=== PATIENT | female | born 1970 | race Caucasian/White ===

== ENCOUNTER 2016-12-07 09:39 | Outpatient (CLI) | payer MEDICAID | END 2016-12-07 09:40 | disposition home or self-care (01) | DX: E66.9 Obesity, unspecified (principal); I10 Essential (primary) hypertension ==

== ENCOUNTER 2017-02-20 09:35 | Outpatient (CLI) | payer MEDICAID | END 2017-02-20 09:36 | disposition home or self-care (01) | DX: Z12.31 Encounter for screening mammogram for malignant neoplasm of breast (principal) ==

== ENCOUNTER 2018-02-19 23:47 | Emergency (ER) | payer MEDICAID ==
[2018-02-20 00:29] LABS: BASOPHILS # (AUTO) 0.1 10^3/uL (0.0-0.1); BASOPHILS % (AUTO) 1.3 %; EOSINOPHILS # (AUTO) 0.3 10^3/uL (0.0-0.7); EOSINOPHILS % (AUTO) 2.9 %; HGB - HEMOGLOBIN 13.1 g/dL (12.0-16.0); LYMPHOCYTES # (AUTO) 2.8 10^3/uL (1.5-3.5); LYMPHOCYTES % (AUTO) 30.7 %; MEAN CORPUSCULAR HEMOGLOBIN 29.9 pg (27.0-31.0); MEAN CORPUSCULAR HGB CONC 33.6 g/dL (32.0-36.0); MEAN PLATELET VOLUME 8.4 fL (7.9-10.8); MONOCYTES # (AUTO) 0.6 10^3/uL (0.0-1.0); NEUTROPHILS # (AUTO) 5.2 10^3/uL (1.5-6.6); NEUTROPHILS % (AUTO) 58.1 %; PLT - PLATELET COUNT 272 10^3/uL (130-450); RED BLOOD COUNT 4.38 10^6/uL (4.20-5.40); RED CELL DISTRIBUTION WIDTH 13.2 % (12.0-15.0)
[2018-02-20 00:44] LABS: ALBUMIN 4.1 g/dL (3.2-5.5); ALBUMIN/GLOBULIN RATIO 1.2 (1.0-2.2); BILIRUBIN,TOTAL 0.3 mg/dL (0.2-1.0); CALCIUM 8.8 mg/dL (8.5-10.3); CREATININE 0.4 mg/dL (0.4-1.0); TOTAL PROTEIN 7.6 g/dL (6.7-8.2)
--- NOTE | 2018-02-20 01:04 | ED Physician Documentation ---
PD HPI SYNCOPE - Stated complaint Stated Complaint: LOW BLOOD PRESSURE - Chief complaint Chief Complaint: Cardiac - History obtained from History obtained from: Patient, Family - History of Present Illness Witnessed: Witnessed Timing - onset: Today Duration: Seconds Preceding symptoms: Diaphoresis, Light headed Contributing factors: Emotional upset Similar symptoms before: Has not had sx before Recently seen: Not recently seen - Additional information Additional information: Patient is a 47 year old female with no significant past medical history who is in the emergency department for hypotension and near syncope. patient was in the ED awaiting on her son. Patient became diaphoretic and dizzy. They checked to the patient's blood pressure and it was 70s systolic so patient checked in. After patient was placed in a bed and re-evaluated her hypotension had resolved and patient was asymptomatic. Review of Systems Constitutional: denies: Fever, Chills Ears: reports: Tinnitus/ringing Nose: reports: Reviewed and negative Throat: reports: Reviewed and negative Cardiac: denies: Chest pain / pressure, Palpitations Respiratory: denies: Dyspnea, Cough, Wheezing GI: denies: Abdominal Pain, Nausea, Vomiting : reports: Reviewed and negative Skin: reports: Reviewed and negative, Other (diaphoretic) Musculoskeletal: reports: Reviewed and negative Neurologic: reports: Near syncope. 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 HEENT: None Psych: None Musculoskeletal: None Derm: None - Past Surgical History Past Surgical History: Yes Ortho: Other HEENT: Tonsil/Adenoidectomy - Present Medications Home Medications: Ambulatory Orders Medication Instructions Recorded Confirmed Carvedilol [Coreg] 6.25 mg PO BID 09/01/13 08/24/15 Lisinopril [Prinivil] 20 mg PO DAILY 09/01/13 08/24/15 - Allergies Allergies/Adverse Reactions: Allergies Allergy/AdvReac Type Severity Reaction Status Date / Time No Known Drug Allergies Allergy Unverified 02/19/18 23:52 - Social History Does the pt smoke?: No Smoking Status: Never smoker Does the pt drink ETOH?: Yes Does the pt have substance abuse?: No - Immunizations Immunizations are current?: Yes PD ED PE NORMAL - Vitals Vital signs reviewed: Yes - General General: Alert and oriented X 3, No acute distress - HEENT HEENT: Atraumatic, PERRL - Neck Neck: Supple, no meningeal sign - Cardiac Cardiac: RRR - Respiratory Respiratory: No respiratory distress, Clear bilaterally - Abdomen Abdomen: Soft, Non tender, Non distended - Derm Derm: Normal color, Warm and dry, No rash - Extremities Extremities: No deformity, Normal ROM s pain, No calf tenderness / cord - Neuro Neuro: Alert and oriented X 3, torch cutter 2-12 intact, No motor deficit, Normal speech Eye Opening: Spontaneous Motor: Obeys Commands Verbal: Oriented GCS Score: 15 Results - Vitals Vitals: Vital Signs - 24 hr 02/19/18 02/20/18 02/20/18 23:50 00:34 01:17 Temperature 35.9 C L Heart Rate 80 80 78 Respiratory 18 13 14 Rate Blood Pressure 124/84 H 132/80 H 128/81 H O2 Saturation 96 100 100 Oxygen O2 Source Room air - EKG (time done) 2351 Rate: Rate (enter#) (79) Rhythm: NSR Brent: Normal Intervals: Normal [place] Ischemia: ST elevation c/w repol - Labs Labs: Laboratory Tests 02/20/18 02/20/18 02/20/18 00:22 00:22 00:22 WBC 9.0 RBC 4.38 Hgb 13.1 Hct 38.9 MCV 89.0 MCH 29.9 MCHC 33.6 RDW 13.2 Plt Count 272 MPV 8.4 Neut # 5.2 Lymph # 2.8 [place] # 0.6 Eos # 0.3 Baso # 0.1 Absolute Nucleated RBC 0.00 Nucleated RBC % 0.0 Sodium 133 L Potassium 3.3 L Chloride 102 Carbon Dioxide 19 L Anion Gap 12.0 BUN 11 Creatinine 0.4 Estimated GFR (MDRD) 170 Glucose 93 Calcium 8.8 Total Bilirubin 0.3 AST 26 ALT 30 Alkaline Phosphatase 53 Troponin I < 0.04 B-Natriuretic Peptide Total Protein 7.6 Albumin 4.1 Globulin 3.5 Albumin/Globulin Ratio 1.2 Lipase 16 L 02/20/18 00:22 WBC RBC Hgb Hct MCV MCH MCHC RDW Plt Count MPV Neut # Lymph # [place] # Eos # Baso # Absolute Nucleated RBC Nucleated RBC % Sodium Potassium Chloride Carbon Dioxide Anion Gap BUN Creatinine Estimated GFR (MDRD) Glucose Calcium Total Bilirubin AST ALT Alkaline Phosphatase Troponin I B-Natriuretic Peptide 17 Total Protein Albumin Globulin Albumin/Globulin Ratio Lipase PD MEDICAL DECISION MAKING - ED course Complexity details: reviewed old records, reviewed results, re-evaluated patient , considered differential, d/w patient, d/w family ED course: patient was seen and examined at bedside. Patient was well appearing and in no distress. ekg was performed and within normal limits. Patient's diagnostics were all within normal limits. Patient's symptoms were likely secondary to a vaso-vagal episode. Patient had a negative score for the woods angelito syncope rule. Patient required no further work up and was stable for discharge with outpatient follow up. Departure - Departure Disposition: 01 Home, Self Care Clinical Impression: Vaso vagal episode Condition: Good Instructions: ED Near Syncope Vasovagal Follow-Up: Maximo Pringle PA-C [Primary Care Provider] - As Needed Comments: Your diagnostics today were within normal limits. Your symptoms were likely secondary to vaso-vagal episode.s. it is important that you stay well hydrated and try to catch up your rest. You should follow up with your doctor if these episodes become more frequent. You may return to the emergency department at any time if needed for new, worsening or uncontrollable symptoms. Discharge Date/Time: 02/20/18 01:26
[2018-02-20 01:18] VITALS: BP 128/81
== END 2018-02-20 01:26 | disposition home or self-care (01) ==
LOC: ED 23:47
DX: I10 Essential (primary) hypertension (principal)
CPT/HCPCS: 36415; 80053; 83690; 83880; 84484; 85025; 93005; 99283; 99284

== ENCOUNTER 2021-07-18 18:06 | Emergency (ER) | payer MEDICAID ==
[2021-07-18 18:38] LABS: BASOPHILS # (AUTO) 0.1 10^3/uL (0.0-0.1); BASOPHILS % (AUTO) 0.7 %; EOSINOPHILS # (AUTO) 0.2 10^3/uL (0.0-0.7); EOSINOPHILS % (AUTO) 1.8 %; HCT - HEMATOCRIT 42.6 % (37.0-47.0); HGB - HEMOGLOBIN 13.1 g/dL (12.0-16.0); LYMPHOCYTES # (AUTO) 2.5 10^3/uL (1.5-3.5); LYMPHOCYTES % (AUTO) 26.2 %; MEAN CORPUSCULAR HEMOGLOBIN 26.2 pg (27.0-31.0); MEAN CORPUSCULAR HGB CONC 30.8 g/dL (32.0-36.0); MEAN CORPUSCULAR VOLUME 85.2 fL (81.0-99.0); MEAN PLATELET VOLUME 10.4 fL (7.9-10.8); MONOCYTES # (AUTO) 0.5 10^3/uL (0.0-1.0); MONOCYTES % (AUTO) 5.7 %; NEUTROPHILS # (AUTO) 6.1 10^3/uL (1.5-6.6); NEUTROPHILS % (AUTO) 65.2 %; PLT - PLATELET COUNT 319 10^3/uL (130-450); RED CELL DISTRIBUTION WIDTH 15.5 % (12.0-15.0); WHITE BLOOD COUNT 9.4 x10^3/uL (4.8-10.8)
[2021-07-18] MEDS ORDERED: KETOROLAC 30 MG/ML VIAL IM STA (18:48)
--- NOTE | 2021-07-18 18:49 | ED Physician Documentation ---
PD HPI ABD PAIN - Stated complaint Stated Complaint: RT BACK&ABD PX - Chief complaint Chief Complaint: Back Pain - History obtained from History obtained from: Patient - Additional information Additional information: 51-year-old woman has been dealing with right flank pain radiating to the right mid abdomen for the last 4 days. Does not seem to change with eating. Does seem to change with motion especially twisting. No nausea or fevers. No urinary complaints or hematuria. No abdominal surgeries. No history of renal or biliary colic. 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 HEENT: None Psych: None Musculoskeletal: None Derm: None - Past Surgical History Past Surgical History: Yes Ortho: Other HEENT: Tonsil/Adenoidectomy - Present Medications Home Medications: Ambulatory Orders Medication Instructions Recorded Confirmed Carvedilol [Coreg] 6.25 mg PO BID 09/01/13 08/24/15 lisinopriL [Prinivil] 20 mg PO DAILY 09/01/13 08/24/15 - Allergies Allergies/Adverse Reactions: Allergies Allergy/AdvReac Type Severity Reaction Status Date / Time No Known Drug Allergies Allergy Unverified 02/19/18 23:52 - Social History Does the pt smoke?: No Smoking Status: Never smoker Does the pt drink ETOH?: Yes Does the pt have substance abuse?: No - Immunizations Immunizations are current?: Yes PD ED PE NORMAL - Vitals Vital signs reviewed: Yes - General General: Alert and oriented X 3, Other (appears uncomfortable) - Cardiac Cardiac: RRR, No murmur - Respiratory Respiratory: No respiratory distress, Clear bilaterally - Abdomen Abdomen: Normal bowel sounds, Soft, Non tender (including to deep palp RUQ/RLQ) - Back Back: No CVA TTP, No spinal TTP - Derm Derm: Normal color, Warm and dry - Extremities Extremities: No edema, No calf tenderness / cord - Neuro Neuro: Alert and oriented X 3, Normal speech Results - Vitals Vitals: Vital Signs - 24 hr 07/18/21 07/18/21 18:12 20:16 Temperature 37 C Heart Rate 97 87 Respiratory 16 19 Rate Blood Pressure 164/106 H 186/96 H O2 Saturation 100 99 Oxygen O2 Source Room air - Labs Labs: Laboratory Tests 07/18/21 07/18/21 07/18/21 18:30 18:30 19:10 WBC 9.4 RBC 5.00 Hgb 13.1 Hct 42.6 MCV 85.2 MCH 26.2 L MCHC 30.8 L RDW 15.5 H Plt Count 319 MPV 10.4 Neut # (Auto) 6.1 Lymph # (Auto) 2.5 [place] # (Auto) 0.5 Eos # (Auto) 0.2 Baso # (Auto) 0.1 Absolute Nucleated RBC 0.00 Nucleated RBC % 0.0 Sodium 139 Potassium 3.6 Chloride 103 Carbon Dioxide 24 Anion Gap 12.0 BUN 11 Creatinine 0.6 Estimated GFR (MDRD) 105 Glucose 112 H Calcium 9.4 Total Bilirubin 0.6 AST 47 H ALT 52 Alkaline Phosphatase 60 Total Protein 8.0 Albumin 4.3 Globulin 3.7 Albumin/Globulin Ratio 1.2 Lipase 28 Urine Color YELLOW Urine Clarity CLEAR Urine pH 5.0 Ur Specific [place] >=1.030 H Urine Protein NEGATIVE Urine Glucose (UA) NEGATIVE Urine Ketones TRACE Urine Occult Blood NEGATIVE Urine Nitrite NEGATIVE Urine Bilirubin NEGATIVE Urine Urobilinogen 0.2 (NORMAL) Ur Leukocyte Esterase NEGATIVE Ur Microscopic Review NOT INDICATED Urine Culture Comments NOT INDICATED - Rads (name of study) CT KUB Radiology: EMP read contemporaneously (NAD) PD MEDICAL DECISION MAKING - ED course ED course: 51-year-old woman with right flank pain radiating to the right upper quadrant. She is nontender over the gallbladder. It is very motion related and specific bending and twisting is a significant exacerbating factor. As such I feel it is likely musculoskeletal, that said because of the location and differential diagnoses labs and CT were ordered without pertinent positive findings except for modestly elevated AST noting that she did drink heavily with friends last night. Advised to decrease alcohol use. Departure - Departure Disposition: 01 Home, Self Care Clinical Impression: Back pain Qualifiers: Back pain location: thoracic back pain Chronicity: acute Back pain laterality: right Qualified Code(s): M54.6 - Pain in thoracic spine Condition: Good Record reviewed to determine appropriate education?: Yes Instructions: ED Neck Back Pain General Comments: Call your doctor to arrange a follow-up appointment, make the next available appointment. In the interim, return anytime if worse or if new symptoms develop. Your blood pressure was elevated today on check into the emergency department. This does not mean that you have hypertension, it is a common phenomenon to come to the emergency department and have elevated blood pressure. I recommend that you see your primary care physician within the week to have it rechecked when you are feeling better. I am prescribing a short course of narcotic pain medication for you. These are potentially dangerous and addictive medications that should be used carefully. These medications may constipate you. Take an dsqa-qia-gkjsvmu stool softener (docusate) twice daily with plenty of water while taking these medications. If you go 24 hours without a bowel movement, take vfva-ghk-dlrlvcl miralax, per package instructions. Do not drink or drive while taking these medications. If you received narcotic or sedating medications while in the emergency department, do not drive for 24 hours. Store this medication in a safe, secure place and out of reach of children. It is a violation of federal law to give or sell this medication to another person or to use in a manner other than prescribed. The ED will not refill narcotic prescriptions, including prescriptions lost or stolen. To dispose of unwanted medications: 1. [facility] at [address] in [place] has a medication drop box. They accept prescription medications (in pill form) Monday through Monday 9:00 a.m. to 5:00 p.m. 2. The [facility] accepts prescription medications (in pill form only) for disposal year round. Call for more information. 3. Contact the [facility] for the next [facility] sponsored prescription drug collection event. , [phone], or [phone]; Note that many narcotic pain relievers also contain Tylenol/acetaminophen. Please ensure that your total dose of acetaminophen from all sources does not exceed 3 g (3000 mg) per day. Forms: Activity restrictions
[2021-07-18 18:51] LABS: ALBUMIN 4.3 g/dL (3.2-5.5); ALBUMIN/GLOBULIN RATIO 1.2 (1.0-2.2); BILIRUBIN,TOTAL 0.6 mg/dL (0.2-1.0); CALCIUM 9.4 mg/dL (8.5-10.3); CREATININE 0.6 mg/dL (0.4-1.0); POTASSIUM 3.6 mmol/L (3.5-5.0)
[2021-07-18 19:16] LABS: BILIRUBIN,URINE NEGATIVE (NEGATIVE); GLUCOSE, URINE (UA) NEGATIVE (NEGATIVE); KETONES,URINE (UA) TRACE mg/dL (NEGATIVE); LEUKOCYTE ESTERASE, URINE NEGATIVE (NEGATIVE); NITRITE,URINE NEGATIVE (NEGATIVE); OCCULT BLOOD,URINE NEGATIVE (NEGATIVE); PROTEIN,URINE NEGATIVE (NEGATIVE); UROBILINOGEN,URINE 0.2 (NORMAL) E.U./dL (NORMAL)
[2021-07-18 19:20] LABS: CLARITY,URINE CLEAR (CLEAR)
--- NOTE | 2021-07-18 21:06 | CT Report ---
PROCEDURE: Abdomen/Pelvis WO INDICATIONS: R flank pain TECHNIQUE: Noncontrast 5 mm thick sections acquired from the diaphragms to the symphysis. 5 mm coronal and sagi ttal reformats were then performed. For radiation dose reduction, the following was used: automated exposure control, adjustment of mA and/or kV according to patient size. COMPARISON: None. FINDINGS: Image quality: Excellent. ABDOMEN: Lung bases: Lung bases are clear. Heart size is normal. Solid organs: Liver and spleen are normal in size. Gallbladder is within normal limits Pancreas is normal in contours. No adrenal nodules. Kidneys are normal in size, without hydronephrosis or neph rolithiasis. Peritoneum and bowel: Unenhanced bowel loops demonstrate normal wall thickness and caliber. No free fluid or air. Normal appendix. Nodes and vessels: No retroperitoneal or mesenteric adenopathy by size criteria. Aorta and inferior vena cava are normal in caliber. Miscellaneous: No ventral hernias. PELVIS: Genitourinary: Bladder wall thickness is normal. Miscellaneous: No inguinal hernias or adenopathy. Bones: No suspicious bony lesions. No vertebral body compression fractures. IMPRESSION: 1. No evidence of urinary tract calcification, nor obstruction. 2. Normal appendix. Reviewed by: Pierre Chirinos MD on 07/18/2021 9:04 PM PDT Approved by: Pierre Chirinos MD on 07/18/2021 9:04 PM PDT Station ID: [id number]
[2021-07-18] MEDS ORDERED: HYDROcod/ACET 5/325 Prepack 4 PO STA (21:31)
[2021-07-18 21:42] VITALS: BP 180/87
== END 2021-07-18 22:04 | disposition home or self-care (01) ==
LOC: ED 18:06
DX: M54.6 Pain in thoracic spine (principal); I10 Essential (primary) hypertension; Z79.899 Other long term (current) drug therapy
CPT/HCPCS: 36415; 80053; 81001; 81003; 83690; 85025; 87086; 96372; 99284

== ENCOUNTER 2022-11-23 13:31 | Emergency (ER) | payer MEDICAID ==
[2022-11-23 13:44] VITALS: BP 170/116
--- NOTE | 2022-11-23 14:51 | XRAY Report ---
PROCEDURE: Knee 4 View BILAT INDICATIONS: Trauma TECHNIQUE: 3 views of the bilateral knee(s) were acquired. COMPARISON: None. FINDINGS: Bones: No fractures or dislocations. No suspicious bony lesions. Soft tissues: No joint effusion. No suspicious soft tissue calcifications. IMPRESSION: No acute radiographic findings. If pain persists, consider cross-sectional imaging Chante to evaluate for occult fracture.. 2 Reviewed by: Maritza Gabriel MD on 11/23/2022 2:50 PM PST Approved by: Maritza Gabriel MD on 11/23/2022 2:50 PM PST Station ID: [id number]
--- NOTE | 2022-11-23 14:53 | ED Physician Documentation ---
PD HPI LOWER EXT INJURY - Stated complaint Stated Complaint: RT KNEE INJ - Chief complaint Chief Complaint: Trauma Ext - History obtained from History obtained from: Patient - Additional information Additional information: The patient comes to the emergency department with chief complaint of bilateral knee pain, worse on the right, since a fall on ice 1 week ago. She states that Her right leg splayed out to the right and her left knee was flexed when she fell,. She states that she had no issue with the left knee initially but now it is clicking a little over the last couple of days. She states the right knee was very swollen and that she has been resting it for the last week. She states she was discouraged that it was still hurting on the medial aspect and was concerned that perhaps something further was wrong. She has been bearing weight with assistance by way of walking stick. The patient has had a prior surgery on her right knee after a fracture When she was 17. 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 No other complaints at this time. Review of Systems Ten Systems: 10 systems reviewed and negative Constitutional: reports: Reviewed and negative Eyes: reports: Reviewed and negative Ears: reports: Reviewed and negative Nose: reports: Reviewed and negative Throat: reports: Reviewed and negative Cardiac: reports: Reviewed and negative Respiratory: reports: Reviewed and negative GI: reports: Reviewed and negative : reports: Reviewed and negative Skin: reports: Reviewed and negative Musculoskeletal: reports: Joint pain, Joint swelling, Pain with weight bearing Neurologic: reports: Reviewed and negative Psychiatric: reports: Reviewed and negative Endocrine: reports: Reviewed and negative Immunocompromised: reports: Reviewed and negative PD PAST MEDICAL HISTORY - Past Medical History Cardiovascular: Hypertension Respiratory: None Endocrine/Autoimmune: None GI: 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 HEENT: None Psych: None Musculoskeletal: None Derm: None - Past Surgical History Past Surgical History: Yes Ortho: Other HEENT: Tonsil/Adenoidectomy - Present Medications Home Medications: Ambulatory Orders Medication Instructions Recorded Confirmed Carvedilol [Coreg] 6.25 mg PO BID 09/01/13 08/24/15 lisinopriL [Prinivil] 20 mg PO DAILY 09/01/13 08/24/15 - Allergies Allergies/Adverse Reactions: Allergies Allergy/AdvReac Type Severity Reaction Status Date / Time No Known Drug Allergies Allergy Unverified 11/23/22 13:44 - Social History Does the pt smoke?: No Smoking Status: Never smoker Does the pt drink ETOH?: Yes Does the pt have substance abuse?: No - Immunizations Immunizations are current?: Yes PD ED PE NORMAL - Vitals Vital signs reviewed: Yes - General General: Alert and oriented X 3, No acute distress, Well developed/nourished - HEENT HEENT: Atraumatic, PERRL, EOMI - Neck Neck: Supple, no meningeal sign - Cardiac Cardiac: RRR, No murmur, Strong equal pulses - Respiratory Respiratory: No respiratory distress, Clear bilaterally - Abdomen Abdomen: Soft, Non tender, Non distended - Derm Derm: Normal color, Warm and dry, No rash - Extremities Extremities: No deformity, Other (Tenderness palpation left knee medially without deformity. No instability with varus valgus/anterior posterior stress. Significantly limited range of motion with flexion secondary to pain/tightness. . Tenderness lateral Left knee inferolateral corner of patella. No deformity. Nearly full ROM.) - Neuro Neuro: Alert and oriented X 3 - Psych Psych: Normal mood, Normal affect Results - Vitals Vitals: Vital Signs - 24 hr 11/23/22 13:40 Temperature 36.3 C L Heart Rate 90 Respiratory 16 Rate Blood Pressure 170/116 H O2 Saturation 97 Oxygen O2 Source Room air - Rads (name of study) R knee XR Radiology: Final report received, EMP read indepedently, See rad report (neg) PD Medical Decision Making - ED course Complexity details: reviewed results, re-evaluated patient, considered differential, d/w patient ED course: The patient's knee was stable and her x-ray of the right knee was unremarkable. I did not x-ray the left knee, as the patient had no issues with it for the first 5 days after the injury and is just now having clicking. The patient was already wearing a knee brace with rigid sides on her right side and I felt that this was reasonable to continue using. The patient declined crutches and stated she would rather use her large walking stick. The patient has been able to bear weight with some assistance from the walking stick and she may continue to do this with her brace on until she is feeling better. 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 We discussed symptomatic management at home, orthopedic follow-up, and the usual indications for return. Departure - Departure Disposition: 01 Home, Self Care Clinical Impression: Right knee sprain Qualifiers: Encounter type: initial encounter Involved ligament of knee: unspecified ligament Qualified Code(s): S83.91XA - Sprain of unspecified site of right knee, initial encounter Left knee sprain Qualifiers: Encounter type: initial encounter Involved ligament of knee: unspecified ligament Qualified Code(s): S83.92XA - Sprain of unspecified site of left knee, initial encounter Condition: Stable Instructions: ED Sprain Knee Follow-Up: Solomon Sanchez MD [Provider Admit Priv/Credential] - Comments: Your x-rays look good. There is no evidence of a fracture. You most likely sprained your knee, And most probably your medial collateral ligament. You may follow-up with orthopedics regarding this, though in general, these heal well on their own. There is no avulsion of bone to indicate a complete avulsion of the ligament. You may continue to take anti-inflammatories, as we have discussed. You should ice and elevate your knee whenever possible but also, work on increased range of motion and flexibility, as we have discussed today. You should be off work until you are able to bear weight on your right leg without any assistance. Forms: Activity restrictions
== END 2022-11-23 15:08 | disposition home or self-care (01) ==
LOC: ED 13:31
DX: S83.92XA Sprain of unspecified site of left knee, initial encounter (principal); S83.91XA Sprain of unspecified site of right knee, initial encounter; W00.0XXA Fall on same level due to ice and snow, initial encounter
CPT/HCPCS: 99282; 99283

== ENCOUNTER 2022-11-30 14:30 | Outpatient (CLI) | payer MEDICAID ==
--- NOTE | 2022-11-30 17:00 | XRAY Report ---
PROCEDURE: Knee 4 View BILAT INDICATIONS: BILAT KNEE PAIN/INJURY TECHNIQUE: 4 views of the bilateral knee(s) were acquired. COMPARISON: None. FINDINGS: Bones: No fractures or dislocations. No suspicious bony lesions. There is mild bilateral femorotib ial compartment narrowing and small intercondylar osteophytes. There are small patellofemoral osteoph ytes bilaterally. Soft tissues: No joint effusion. No suspicious soft tissue calcifications. IMPRESSION: Mild bilateral knee osteoarthritis. No acute radiographic findings. Reviewed by: Maritza Gabriel MD on 11/30/2022 4:59 PM PST Approved by: Maritza Gabriel MD on 11/30/2022 4:59 PM PST Station ID: [id number]
== END 2022-11-30 23:59 | disposition home or self-care (01) ==
LOC: DI.WOS 14:30
PROVIDERS: ATTEND Physician Assistant Surgical
DX: M17.0 Bilateral primary osteoarthritis of knee (principal)

== ENCOUNTER 2023-04-04 14:10 | Outpatient (CLI) | payer MEDICAID ==
--- NOTE | 2023-04-05 10:54 | Mammography Report ---
BILATERAL DIGITAL SCREENING MAMMOGRAM 3D/2D: 04/04/2023 CLINICAL: Routine screening. Comparison is made to exams dated: 02/20/2017 mammogram, 07/07/2009 mammogram, 12/16/2008 mammogram, ultrasound, 10/28/2008 mammogram, and 09/30/2008 mammogram - [facility]. Both breasts are heterogeneously dense, which may obscure small masses (category c / 51-75% glandular tissue). There is a benign mass in the right breast. There also is a biopsy clip in the right breast. No significant masses, calcifications, or other findings are seen in either breast. There has been no significant interval change. IMPRESSION: BENIGN There is no mammographic evidence of malignancy. A 1 year screening mammogram is recommended. Based on the Tyrer Cuzick model (a risk assessment model) the patients lifetime risk is 11.6% and he r 10 year risk is 3.3%. According to the ACR, ACS, and NCCN guidelines, an annual breast MRI exam arlette ng with mammogram is recommended if the patients lifetime risk is 20% or greater. This exam was interpreted at Station ID: [id number]. NOTE: For mammograms, a report in lay terms will be sent to the patient. Approximately 15% of breast malignancies will not be visualized mammographically. In the management of a palpable breast mass, a negative mammogram must not discourage biopsy of a clinically suspicious lesion. Electronically Signed By: Ricardo marin/reynaldo:04/04/2023 16:34:38 letter sent: No_Letter ACR BI-RADS Category 2: Benign Finding(s) 3342F PARENCHYMAL PATTERN: (D) - The breast(s) demonstrate(s) heterogeneously dense fibroglandular partanyay ma. BI-RADS CATEGORY: (2) - 2 Mammogram [id number] 1 year screening LATERALITY: (B)
== END 2023-04-04 14:11 | disposition home or self-care (01) ==
LOC: DI 14:10
PROVIDERS: ATTEND Registered Nurse
DX: Z12.31 Encounter for screening mammogram for malignant neoplasm of breast (principal)

== ENCOUNTER 2023-05-16 10:05 | Outpatient (CLI) | payer MEDICAID ==
--- NOTE | 2023-05-16 11:08 | SLEEP CARE CONSULTATION ---
Information from patient questionnaire entered by Christin Alba. I have reviewed and concur with the information entered by Christin Alba. This document represents the service I personally performed and the decisions made by me, Marlene Hunter ARNP. History of Present Illness Service Date and Time: 05/16/2023 1005 Reason for Visit: New patient Chief Complaint: reports: Insomnia, Snoring, Frequent awakenings at night Date of Onset: 10YRS Usual bedtime: 11PM Time it takes to fall asleep: 30-60MINS Snores at night: Yes Observed to quit breathing while asleep: No Sleeps alone due to snoring: No Number of times waking at night: 2-3 Reasons for waking at night: reports: Pain, Bathroom. denies: Choking, Gasping for air Toss, Turn, or Twitch while sleeping: Yes Recalls having dreams: Yes Usually gets out of bed at: 7AM Feels refreshed in the morning: No Morning headache: No Sleepy or fatigued during the day: Yes Ever fallen asleep while driving: Yes Takes day naps: Yes (4-5 days a week) Dreams during day naps: Yes (drowsy driving; would puller out a take nap when younger) Prior sleep studies: No Additional HPI information: I had the pleasure of seeing RAMILA SWARTZ today regarding the possibility of her having a sleep disorder. Her current complaints are snoring, frequent night awakenings and insomnia. She states that she has had insomnia since she was 10 years old. Her mind does not shut off at night and it takes a long time to fall asleep. She will then wake up 2-3 times at night. She does not wake up feeling refreshed completely because she has not been sleeping solidly through night for a long time. 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 Patient is and lives in [place]. Have you smoked in the past 12 months: No Alcohol use: Yes Alcohol amount and frequency: 2-3 BEERS EVERYDAY Caffeine use: No Family History Family history of sleep disordered breathing: No Family Hx Sleep Apnea: Father: Snoring, Sibling: Snoring, Grandparent: Snoring Allergies and Home Medications Known drug allergies: No Drug allergies reviewed: Yes Home medication list reviewed: Yes Allergy and home medication list: Allergies No Known Drug Allergies Allergy (Unverified 05/15/23 16:05) Medications: Lisinopril 20 mg daily Review of Systems Cardiovascular: reports: high blood pressure Respiratory: denies: shortness of breath Gastrointestinal: denies: heartburn Neurological: denies: headaches Psychiatric: reports: anxiety Ear/Nose/Throat: reports: tonsillectomy, wisdom teeth removed Endocrine: denies: thyroid disease Immunologic: reports: sneezing, allergies to food or environment (pineapple) Physical Exam Vital signs obtained and entered by: CHRISTIN Andrews MA Blood Pressure: 136/82 (LEFT ARM) Cuff size: long Heart Rate: 77 O2 Saturation: 96 Height: 5 ft 3 in Weight: 221 lb 6.4 oz Body Mass Index: 39.2 BMI Classification: Obese Neck circumference: 17.25 Nostrils: patent to airflow Mouth and throat: narrow oropharynx Soft palate: long Hard palate: normal Uvula: normal Uvula visualization: 25% Mallampati Class III Tongue: enlarged in size with teeth mendieta on lateral edges Tonsils: absent bilaterally Neck: normal w/o lymphadenopathy or thyromegaly Heart: regular rate and rhythm Lungs: clear bilaterally Impression and Plan 1. Suspected Obstructive Sleep Apnea-Hypopnea Syndrome, as suggested by a history of loud and irregular snoring, frequent awakening during the night, unrefreshed sleep, and excessive daytime sleepiness. Narrow oropharynx and obesity are common predisposing factors for obstructive sleep apnea-hypopnea syndrome. I recommend proceeding to polysomnography to confirm the diagnosis and to assess severity. If the patient has significant sleep disordered breathing, a manual CPAP titration study will also be performed to find the optimal treatment pressure. I informed the patient of what the sleep studies involve and after some discussion, obtained agreement to proceed. The pathophysiology of obstructive sleep apnea-hypopnea syndrome was discussed with the patient and health risks of cardiovascular and cerebrovascular disease if not treated. Risks of drowsy driving discussed in detail and patient advised to avoid long distance driving and to puller out at the first sign of drowsiness. Patient agreed to plan. * Schedule polysomnography +- manual CPAP titration study and return in 1-2 weeks after the study to discuss result and initiate therapy. * Avoid long distance driving or driving when feeling sleepy. * Avoid alcohol, sedative and muscle relaxant around bedtime. * Attempt to lose weight. * Review instructions provided by trained office staff on how to prepare for the sleep study. * Return for follow-up after sleep study completed. Counseling Topics: Weight loss health impact Visit Type: In Office Time Spent with Patient (minutes): 30 Provider Statement: I spent 100% of the Face to Face Visit with the patient with greater than 50% spent counseling the patient and coordination of care.
[2023-05-16 11:10] VITALS: BP 136/82
== END 2023-05-16 10:06 | disposition home or self-care (01) ==
LOC: SC 10:05
PROVIDERS: ATTEND Nurse Practitioner Family
DX: G47.10 Hypersomnia, unspecified (principal); G47.8 Other sleep disorders; R06.83 Snoring; G47.00 Insomnia, unspecified; E66.9 Obesity, unspecified; Z68.39 Body mass index [BMI] 39.0-39.9, adult
CPT/HCPCS: 99203; 99212

== ENCOUNTER 2023-06-06 10:08 | Outpatient (CLI) | payer MEDICAID ==
[2023-06-06 10:34] LABS: BASOPHILS # (AUTO) 0.1 10^3/uL (0.0-0.1); BASOPHILS % (AUTO) 0.8 %; EOSINOPHILS # (AUTO) 0.2 10^3/uL (0.0-0.7); EOSINOPHILS % (AUTO) 2.3 %; HCT - HEMATOCRIT 40.3 % (37.0-47.0); HGB - HEMOGLOBIN 12.7 g/dL (12.0-16.0); LYMPHOCYTES % (AUTO) 21.9 %; MEAN CORPUSCULAR HEMOGLOBIN 27.5 pg (27.0-31.0); MEAN CORPUSCULAR HGB CONC 31.5 g/dL (32.0-36.0); MEAN CORPUSCULAR VOLUME 87.2 fL (81.0-99.0); MEAN PLATELET VOLUME 10.3 fL (7.9-10.8); MONOCYTES # (AUTO) 0.6 10^3/uL (0.0-1.0); MONOCYTES % (AUTO) 6.7 %; NEUTROPHILS # (AUTO) 6.3 10^3/uL (1.5-6.6); PLT - PLATELET COUNT 303 10^3/uL (130-450); RED BLOOD COUNT 4.62 10^6/uL (4.20-5.40); RED CELL DISTRIBUTION WIDTH 15.1 % (12.0-15.0); WHITE BLOOD COUNT 9.3 x10^3/uL (4.8-10.8)
[2023-06-06 10:51] LABS: ALBUMIN 3.9 g/dL (3.2-5.5); ALKALINE PHOSPHATASE 49 IU/L (42-121); ALT ALANINE AMINOTRANSFERASE 32 IU/L (10-60); AST ASPARTATE AMINOTRANSFERASE 23 IU/L (10-42); BILIRUBIN,TOTAL 0.8 mg/dL (0.2-1.0); BUN - BLOOD UREA NITROGEN 14 mg/dL (6-20); CALCIUM 8.7 mg/dL (8.5-10.3); CARBON DIOXIDE - CO2 26 mmol/L (21-32); CHLORIDE 101 mmol/L (101-111); CHOL/HDL RATIO 2.9 (<4.4); CHOLESTEROL 240 mg/dL; CREATININE 0.7 mg/dL (0.4-1.0); GFR - MDRD 87 (>89); GLUCOSE 108 mg/dL (70-100); HDL CHOLESTEROL 83 mg/dL; LDL CHOLESTEROL,CALCULATED 138 mg/dL; LDL/HDL RATIO 1.7 (<4.4); POTASSIUM 4.5 mmol/L (3.5-5.0); SODIUM 134 mmol/L (135-145); TOTAL PROTEIN 7.7 g/dL (6.7-8.2); TRIGLYCERIDES 97 mg/dL; VLDL CHOLESTEROL 19 mg/dL
[2023-06-06 11:03] LABS: THYROID STIMULATING HORMONE 2.75 uIU/mL (0.34-5.60)
== END 2023-06-06 10:09 | disposition home or self-care (01) ==
LOC: LAB 10:08
PROVIDERS: ATTEND Registered Nurse
DX: Z79.899 Other long term (current) drug therapy (principal); Z13.220 Encounter for screening for lipoid disorders; Z13.29 Encounter for screening for other suspected endocrine disorder
CPT/HCPCS: 36415; 80050; 80061; 83721

== ENCOUNTER 2023-07-11 09:36 | Outpatient (CLI) | payer MEDICAID | END 2023-07-11 09:37 | disposition home or self-care (01) | LOC: SC 09:36 | PROVIDERS: ATTEND Nurse Practitioner Family | DX: G47.33 Obstructive sleep apnea (adult) (pediatric) (principal); R09.02 Hypoxemia; E66.9 Obesity, unspecified; Z68.39 Body mass index [BMI] 39.0-39.9, adult | CPT/HCPCS: 95806 ==

== ENCOUNTER 2023-08-09 10:25 | Outpatient (CLI) | payer MEDICAID ==
--- NOTE | 2023-08-09 10:54 | Sleep Patient Instructions ---
Sleep Center Visit Summary - Patient Visit Information Reason for Visit: Follow-up sleep study - Patient Instructions Instructions Attached: CPAP, CPAP Dc Additional Instructions: You are being started on CPAP therapy with pressure setting at 4-15 cmH2O. You will need to call the sleep care office to set up your follow up once you have your APAP machine and we will schedule a visit to check compliance and response to therapy at that time. You may call the office with any concerns about pressure feeling too low or too much for adjustment, if needed. You should contact DME supplier for any questions or concerns about mask or equipment. Please call office to schedule a follow up appointment in the sleep care office one month after obtaining new device. - Clinic Information Contact: [facility] [address] [place] [address] [email or web address] T: [phone]
--- NOTE | 2023-08-09 10:55 | SLEEP CARE CONSULTATION ---
Information from patient questionnaire entered by Annie Alba. I have reviewed and concur with the information entered by Annie Alba. This document represents the service I personally performed and the decisions made by , Marlene Hunter ARNP. History of Present Illness Service Date and Time: 08/09/2023 1025 Initial [place] Sleepiness Scale score: 15 (05/16/23) Current [place] Sleepiness Scale score: 9 (08/09/23) Additional HPI information: RAMILA SWARTZ returns for follow up and results of the recently performed home sleep study. Her sleep study showed moderate obstructive sleep apnea with an average AHI of 27.9 and navneet oxygen saturation of 67%. I explained the pathophysiology behind obstructive sleep apnea. We then spent quite a bit of time discussing different treatment options. For mild obstructive sleep apnea, surgery and oral appliance are alternatives to nasal CPAP therapy but in moderate or severe cases, nasal CPAP is the most effective and reliable treatment. I reviewed the impact of weight changes on sleep apnea and strongly recommended losing weight. After some discussion, the patient opted to go with the nasal CPAP therapy. Nasal autoCPAP set at 4-15 cmH20 will be ordered with rationale explained. A manual titration study will be ordered if unable to find optimal pressure with office adjustments. I explained how CPAP machine works and what to expect when using the machine. Using CPAP every night in order to get used to it was emphasized. Patient advised to put CPAP mask on before getting into bed so as not to fall asleep without CPAP. To assist acclimation to CPAP use, it could also be used for a short time during day while reading or watching TV. The patient was instructed to call the CPAP supplier to discuss any mechanical problem that may occur. If the mask given is uncomfortable or is difficult to keep on through the night even with adjustment, contact the CPAP supplier as many will replace with another mask style if notified before 30 days. If snoring or perceives is not getting enough air or too much air from the machine, notify this office. Patient counseled not drink alcohol less than 4 hours before bedtime as it can increase snoring and apnea. Patient was cautioned about risks of drowsy driving until sleepiness symptoms resolve. Patient denies drowsy driving. Sleep Study - Results Type of Sleep Study: Home sleep study (COMPLETED 07/11/23) Prior sleep studies: No Polysomnography/Home Sleep Study results: Physician Impression: The quality of the study is good. The length of the study is adequate (> 240 minutes). Please also see the tabulated and graphic data. 1. Obstructive Sleep Apnea-Hypopnea (ICD-10 G47.33), moderate, with an AHI of 27.9/hr and navneet SaO2 of 67%. During the study, the patient had 95 apneas (95 obstructive, 0 central, 0 mixed) and 133 hypopneas. The longest episode lasted 95.0 seconds. The respiratory events occurred more frequently during supine sleep (supine AHI was 36.7 and non-supine, 15.62). 2. Hypoxemia (ICD-10 R09.02), moderate, with the lowest oxygen saturation of 67 % and 256.4 minutes with SaO2 under 90%. Baseline oxygen saturation was low-normal (Average oxygen saturation was 89%). Allergies and Home Medications Known drug allergies: No Drug allergies reviewed: Yes Home medication list reviewed: Yes (no changes) Allergy and home medication list: Allergies pineapple Allergy (Verified 08/08/23 12:04) Review of Systems Review of systems same as previous: Yes (no changes) Physical Exam Vital signs obtained and entered by: ANNIE Andrews MA Blood Pressure: 126/74 (LEFT ARM) Cuff size: regular Heart Rate: 79 O2 Saturation: 95 Height: 5 ft 3 in Weight: 219 lb 12.8 oz Body Mass Index: 38.9 BMI Classification: Obese Impression and Plan 1. Obstructive Sleep Apnea-Hypopnea Syndrome, moderate, with lowest oxygen saturation of 67%. Obviously this is the cause of the patients symptoms of unrefreshed sleep, and excessive daytime sleepiness. Positive pressure therapy could benefit hypertension, anxiety and mood disorder (PTSD). As mentioned above, the patient will be started on nasal autoCPAP therapy with pressure set at 4-15 cmH2O. A manual titration study will be completed if unable to find optimal treatment pressure with office adjustments. Compliance guidelines also reviewed. A copy of compliance guidelines will be given for reference at check out. Because the apnea is more severe supine, I instructed to avoid sleeping supine using pillow positioning until able to start CPAP use. 2. Hypoxemia, moderate, with a navneet oxygen saturation of 67% and 256.4 minutes spent under 90%. Her baseline oxygen saturation was low-normal with an average oxygen saturation of 89%. 3. Obesity, unspecified. Currently patients BMI is 38.9. Obesity increases the risk of apnea, CPAP pressure requirements and overall health risks especially cardiovascular and diabetes. Thus patient is advised to lose weight. * Nasal auto CPAP therapy, pressure at 4-15 cm H2O. * Attempt to lose weight. * Avoid alcohol consumption near bedtime. * Avoid supine sleep until using CPAP. * The patient is again cautioned about driving until sleepiness completely resolves. * Return one month after CPAP obtained. I will assess response to therapy and compliance at that time. Counseling Topics: Sleeping position, Weight loss health impact Visit Type: In Office Time Spent with Patient (minutes): 24 Provider Statement: I spent 100% of the Face to Face Visit with the patient with greater than 50% spent counseling the patient and coordination of care.
[2023-08-09 10:57] VITALS: BP 126/74; O2SAT 95
== END 2023-08-09 10:26 | disposition home or self-care (01) ==
LOC: SC 10:25
PROVIDERS: ATTEND Nurse Practitioner Family
DX: G47.33 Obstructive sleep apnea (adult) (pediatric) (principal); R09.02 Hypoxemia; E66.9 Obesity, unspecified; Z68.38 Body mass index [BMI] 38.0-38.9, adult
CPT/HCPCS: 99212; 99213